=== PATIENT | male | born 1990 | race Caucasian/White ===

== ENCOUNTER 2018-07-11 15:59 | Emergency (ER) | payer MEDICAID ==
[~2018-07-11] VITALS: Ht 188 cm; Wt 81.6 kg
--- NOTE | 2018-07-11 16:05 | NUR ---
Patient arrived with parents for not eating well for the past several days. Patient is not able engage in coversation. States "no" to all requestions, including VS, name, purpose of visit. Patient is actively with drawing from VS at this time, unable to complete full triage pending medical eval. Patient to ER bed 8 to gown for evaluation. Side rails up. Report given to Aaron ELLINGTON.
--- NOTE | 2018-07-11 16:20 | NUR ---
Patient to ER via triage with mother for evaluation of decreased PO intake for the last several days. Patient was seen and treated at [facility] last week for similar complaints. Patient with HX of Bipolar disorder and per mother patient has been compliant with his medication. Patient is awake, alert with flat affect, just reponding "no" to questions. Patient able to ambulate without difficulty with slow, steady gait. Patient refusing vital signs and any treatment at this time. Respirations even and unlabored, skin warm and dry to touch. Awaiting evaluation by ER MD, will continue to observe and assess.
--- NOTE | 2018-07-11 16:25 | NUR ---
ER at bedside examining patient.
[2018-07-11] MEDS ORDERED: LORazepam 2 MG/ML VIAL (FOR ER USE) IM ONE (16:30)
[2018-07-11] MEDS ORDERED: DIPHENHYDRAMINE INJ 50 MG/ML VIAL IM ONE (16:30)
[2018-07-11] MEDS ORDERED: HALOPERIDOL LACTATE 5 MG/ML VIAL IM ONE (16:30)
[2018-07-11] MEDS ORDERED: HAL5 PO (16:35)
[2018-07-11] MEDS ORDERED: NEU300 PO (16:35)
[2018-07-11] MEDS ORDERED: ESCI20TA PO (16:35)
[2018-07-11] MEDS ORDERED: BENZ1TAB7 PO (16:35)
[2018-07-11] MEDS ORDERED: LITH150C PO (16:35)
[2018-07-11] MEDS ORDERED: LURA40TA PO (16:35)
[2018-07-11] MEDS ORDERED: LAMO150T2 PO (16:35)
--- NOTE | 2018-07-11 16:35 | NUR ---
Medication reconciliation completed with information provided by family. Any prior medication reconciliation on file was reviewed and corrected.
--- NOTE | 2018-07-11 16:45 | NUR ---
Physician order given to place behavioral restraints to all extremities to prevent injuy to staff or patient during medical treatment. Restraints placed with quick-release ties to bed frame. Will monitor patient frequently. Patient continues to just answer "No" to questions, patient refusing to agree to treatment plan or contract for patient/staff safety. Patient with bizarre affect. Patient up ambulating in ER. Patient yelling at staff and screaming when staff attempted to medicate patient.
--- NOTE | 2018-07-11 17:00 | NUR ---
Patient without s/s injury, patient still continues to be danger to staff. Awaiting medication to take effect. Will continue to observe and assess. Vital signs stable, respirations even and unlabored.
[2018-07-11] MEDS ORDERED: NACL 0.9% 1,000 ML IV ONE (17:15)
[2018-07-11] MEDS ORDERED: ONDANSETRON HCL 4 MG/2 ML VIAL IVP ONE (17:15)
--- NOTE | 2018-07-11 17:30 | NUR ---
Assessment remains unchanged.
[2018-07-11] MEDS ORDERED: LORazepam 2 MG/ML VIAL (FOR ER USE) IVP ONE (18:00)
--- NOTE | 2018-07-11 18:06 | NUR ---
Medicated per MD orders. IVF infusing with no s/s of infiltration at this time. Will cont to monitor. No adverse reaction noted.
[2018-07-11 18:58] LABS: BASOPHILS % (AUTO) 0.3 % (0.0-2.0); EOSINOPHILS # (AUTO) 0.1 K/uL (0.0-0.4); EOSINOPHILS % (AUTO) 0.9 % (0.0-4.0); HEMATOCRIT 41.6 % (36-54); HEMOGLOBIN 14.3 g/dL (14.0-18.0); MEAN CORPUSCULAR HEMOGLOBIN 29 pg (27-31); MEAN CORPUSCULAR HGB CONC 34 % (32-36); MEAN CORPUSCULAR VOLUME 85 fL (79.0-98.0); MONOCYTES # (AUTO) 0.3 K/uL (0.0-1.0); MONOCYTES % (AUTO) 3.9 % (1.7-9.3); NEUTROPHILS # (AUTO) 7.5 K/uL (1.8-7.7); NEUTROPHILS % (AUTO) 83.9 % (40.0-70.0); PLATELET COUNT (AUTO) 224 K/uL (130-430); RED BLOOD CELL COUNT(AUTO) 4.92 MIL/uL (4.2-6.2); WHITE BLOOD COUNT (AUTO) 8.9 K/uL (4.8-10.8)
--- NOTE | 2018-07-11 19:00 | NUR ---
Patient still attempting to pull at lines, but is no longer violent. Behavioral restraints dc'd and patient placed in medical non-violent restraints. Vital signs stable, respirations even and unlabored, skin warm and dry to touch. IV fluids infusing without difficulty, no redness or swelling noted at site. Awaiting dispo.
[2018-07-11 19:12] LABS: CALCIUM 9.2 mg/dL (8.4-11.0); CREATININE 1.5 mg/dL (0.55-1.30); POTASSIUM 3.5 mmol/L (3.5-5.1)
[2018-07-11 19:16] LABS: ALBUMIN 3.5 g/dL (3.4-4.8); TOTAL BILIRUBIN 0.6 mg/dL (0.0-1.0)
--- NOTE | 2018-07-11 19:30 | NUR ---
Dr Houser at bedside speaking with patient and his mother regarding results and plan of care, questions answered by Dr Houser. Patient to be discharged home. Medical non-violent restraints dc'd, no s/s injury or trauma noted.
[2018-07-11 20:00] VITALS: BP_SYST 112
--- NOTE | 2018-07-11 20:00 | NUR ---
Patient given written and verbal discharge instructions and verbalizes understanding. ER MD discussed with patient the results and treatment provided. Patient in stable condition. ID arm band removed. IV catheter removed intact and dressing applied, no active bleeding. No RX given. Patient educated on pain management and to follow up with PMD. Pain Scale 0. Opportunity for questions provided and answered. Patient left ER in no acute distress, with family at his side. Patient brought to private car via wheelchair and assisted into car. No trauma/injury reported.
== END 2018-07-11 20:00 | disposition home or self-care (01) ==
LOC: SED 15:59
DX: E86.0 Dehydration (principal); F31.9 Bipolar disorder, unspecified; Z79.899 Other long term (current) drug therapy
CPT/HCPCS: 36415; 80053; 83690; 85025; 96361; 96372; 96374; 96375; 99283; J1200; J1630; J2060; J2405; J7030